=== PATIENT | female | born 1945 | race Caucasian/White ===

== ENCOUNTER 2019-04-30 13:20 | Emergency (ER) | payer MEDICARE ==
[2019-04-30] MEDS ORDERED: Sodium Chloride 0.9% 10 ML Syringe FLUSH PRN (13:24)
--- NOTE | 2019-04-30 14:40 | EDM.PDOC ---
ED HPI GENERAL MEDICAL PROBLEM - General Chief Complaint: General Stated Complaint: DISORIENTED Time Seen by Provider: 04/30/19 14:25 Source of Information: Reports: Patient, Family, Old Records History Limitations: Reports: No Limitations - History of Present Illness INITIAL COMMENTS - FREE TEXT/NARRATIVE: 74 yo healthy female is brought into the ER for about 30 minutes of confusion. Has no slurred speech or difficulty walking. Was speaking clearly but was disoriented. Is now fully back to her normal, but doesn't remember events that occurred during that interval of time. No GARCIA. No recent stress or sleep deprivation. No recent illnesses. Onset: Today Onset Date: 04/30/19 Duration: Minutes: (30), Resolved Prior to Arrival Location: Reports: Head Quality: Reports: Other (no pain) Severity: Moderate Improves with: Reports: Other (time) Worsens with: Reports: Other (unknown) Context: Reports: Other (see HPI) Associated Symptoms: Reports: No Other Symptoms Treatments [employer]: Reports: Other (see below) (none) - Related Data Allergies Allergy/AdvReac Type Severity Reaction Status Date / Time No Known Allergies Allergy Verified 04/30/19 14:11 Home Meds: Home Meds Hydrochlorothiazide/Lisinopril [Lisinopril/HCTZ 20-12.5 MG] 1 tab PO DAILY 04/30 [History] atorvaSTATin [Lipitor] 20 mg PO BEDTIME 04/30/19 [History] metFORMIN [Glucophage] 500 mg PO BIDMEALS 04/30/19 [History] Past Medical History Cardiovascular History: Reports: High Cholesterol, Hypertension Gastrointestinal History: Reports: None Musculoskeletal History: Reports: Arthritis Endocrine/Metabolic History: Reports: Diabetes, Type II Oncologic (Cancer) History: Reports: Other (See Below) Other Oncologic History: skin cancer removed off hand - Past Surgical History Head Surgeries/Procedures: Reports: None Cardiovascular Surgical History: Reports: None GI Surgical History: Reports: Appendectomy Endocrine Surgical History: Reports: None Musculoskeletal Surgical History: Reports: None Oncologic Surgical History: Reports: None Dermatological Surgical History: Reports: None Social & Family History - Family History Family Medical History: Noncontributory - Tobacco Use Smoking Status *Q: Never Smoker Second Hand Smoke Exposure: No - Caffeine Use Caffeine Use: Reports: Coffee, Soda, Tea - Recreational Drug Use Recreational Drug Use: No ED ROS GENERAL - Review of Systems Review Of Systems: See Below Constitutional: Reports: No Symptoms HEENT: Reports: No Symptoms Respiratory: Reports: No Symptoms Cardiovascular: Reports: No Symptoms GI/Abdominal: Reports: No Symptoms : Reports: No Symptoms Musculoskeletal: Reports: No Symptoms Skin: Reports: No Symptoms Neurological: Reports: Confusion (amnesia now to events during that 30 minutes of confusion. ). Denies: Dizziness, Headache Psychiatric: Reports: No Symptoms ED EXAM, GENERAL - Physical Exam Exam: See Below Exam Limited By: No Limitations General Appearance: Alert, WD/WN, No Apparent Distress Eye Exam: Bilateral Eye: Normal Inspection Ears: Normal External Exam, Normal Canal, Hearing Grossly Normal, Normal TMs Ear Exam: Bilateral Ear: Auricle Normal, Canal Normal, TM normal Nose: Normal Inspection, No Blood Throat/Mouth: Normal Inspection, Normal Lips, Normal Oropharynx, Normal Voice, No Airway Compromise Head: Atraumatic, Normocephalic Neck: Normal Inspection Respiratory/Chest: No Respiratory Distress, Lungs Clear, Normal Breath Sounds, No Accessory Muscle Use Cardiovascular: Regular Rate, Rhythm, No Edema GI/Abdominal: Normal Bowel Sounds, Soft, Non-Tender, No Distention Back Exam: Normal Inspection. No: CVA Tenderness (R), CVA Tenderness (L) Extremities: Normal Inspection, Normal Range of Motion, Non-Tender, No Pedal Edema Neurological: Alert, Oriented, CN II-XII Intact, Normal Cognition, No Motor/ Sensory Deficits Psychiatric: Normal Affect, Normal Mood Skin Exam: Warm, Dry, Intact, Normal Color, No Rash Course - Vital Signs Last Recorded V/S: Last Vital Signs Temp Pulse 62 04/30/19 14:09 Resp 16 04/30/19 14:09 BP 171/84 H 04/30/19 14:09 Pulse Ox 98 04/30/19 14:09 - Orders/Labs/Meds Orders: Active Orders 24 hr Category Date Time Status Cardiac Monitoring [RC] .As Directed Care 04/30/19 13:24 Inactive Oxygen Therapy Adult [Oxygen Therapy, ED] [RC] Care 04/30/19 13:24 Inactive ASDIRECTED Urinary Catheter Assessment [RC] ASDIRECTED Care 04/30/19 13:26 Inactive Labs: Laboratory Tests 04/30/19 04/30/19 04/30/19 Range/Units 14:43 14:43 15:22 WBC 6.8 (4.5-11.0) K/uL RBC 4.36 (3.30-5.50) M/uL Hgb 13.0 (12.0-15.0) g/dL Hct 40.8 (36.0-48.0) % MCV 94 (80-98) fL MCH 30 (27-31) pg MCHC 32 (32-36) % Plt Count 290 (150-400) K/uL Sodium 142 (140-148) mmol/L Potassium 3.8 (3.6-5.2) mmol/L Chloride 101 (100-108) mmol/L Carbon Dioxide 28 (21-32) mmol/L Anion Gap 12.8 (5.0-14.0) mmol/L BUN 22 H (7-18) mg/dL Creatinine 0.9 (0.6-1.0) mg/dL Est Cr Clr Drug Dosing 54.14 mL/min Estimated GFR (MDRD) > 60 (>60) Glucose 161 H (74-106) mg/dL Calcium 9.2 (8.5-10.1) mg/dL Troponin I < 0.017 (0.000-0.056) ng/mL Urine Color Yellow (YELLOW) Urine Appearance Clear (CLEAR) Urine pH 6.0 (5.0-8.0) Ur Specific [place] 1.010 (1.008-1.030) Urine Protein Negative (NEGATIVE) mg/dL Urine Glucose (UA) Normal (NEGATIVE) mg/dL Urine Ketones Negative (NEGATIVE) mg/dL Urine Occult Blood Negative (NEGATIVE) Urine Nitrite Negative (NEGATIVE) Urine Bilirubin Negative (NEGATIVE) Urine Urobilinogen 0.2 (0.2-1.0) EU/dL Ur Leukocyte Esterase Negative (NEGATIVE) Urine RBC 0-5 (0-5) Urine WBC 0-5 (0-5) Ur Epithelial Cells Rare Amorphous Sediment Not seen Urine Bacteria Not seen Urine Mucus Not seen Meds: Medications Discontinued Medications Generic Name Dose Route Start Last Admin Trade Name Freq PRN Reason Stop Dose Admin Aspirin 324 mg 04/30/19 15:24 04/30/19 15:29 Aspirin PO 04/30/19 15:25 324 mg ONETIME ONE Administration Sodium Chloride 10 ml 04/30/19 13:24 Saline Flush FLUSH ASDIRECTED PRN Keep Vein Open Departure - Departure Time of Disposition: 15:38 Disposition: Home, Self-Care 01 Condition: Fair Clinical Impression: Transient confusion, Amnesia, Elevated glucose level - Discharge Information *PRESCRIPTION DRUG MONITORING PROGRAM REVIEWED*: Not Applicable *COPY OF PRESCRIPTION DRUG MONITORING REPORT IN PATIENT REYNA: Not Applicable Instructions: Hyperglycemia, [id number] Referrals: Brent Butler MD [Primary Care Provider] - Forms: ED Department Discharge Additional Instructions: Increase your metformin to 1000 mg twice daily. Take a baby aspirin, chewed, with a meal each day. F/U with Dr. Butler. Return here as needed. Sepsis Event Note - Evaluation Sepsis Screening Result: No Definite Risk - Focused Exam Vital Signs: Vital Signs Pulse Resp BP Pulse Ox 04/30/19 14:09 62 16 171/84 H 98 Date Exam was Performed: 04/30/19 Time Exam was Performed: 15:38 - My Orders Last 24 Hours: My Active Orders 04/30/19 13:24 Cardiac Monitoring [RC] .As Directed Oxygen Therapy Adult [Oxygen Therapy, ED] [RC] ASDIRECTED 04/30/19 13:26 Urinary Catheter Assessment [RC] ASDIRECTED - Assessment/Plan Last 24 Hours: My Active Orders 04/30/19 13:24 Cardiac Monitoring [RC] .As Directed Oxygen Therapy Adult [Oxygen Therapy, ED] [RC] ASDIRECTED 04/30/19 13:26 Urinary Catheter Assessment [RC] ASDIRECTED
[2019-04-30] MEDS ORDERED: Aspirin 81 MG Tab.Chew PO ONE (15:24)
== END 2019-04-30 15:53 | disposition home or self-care (01) ==
LOC: JP.ED 13:20
DX: R41.0 Disorientation, unspecified (principal); R41.3 Other amnesia; E11.65 Type 2 diabetes mellitus with hyperglycemia; I10 Essential (primary) hypertension; E78.00 Pure hypercholesterolemia, unspecified; M19.90 Unspecified osteoarthritis, unspecified site; Z79.84 Long term (current) use of oral hypoglycemic drugs; Z79.899 Other long term (current) drug therapy
CPT/HCPCS: 36415; 80048; 81001; 84484; 85027; 99283; 99285; A9270

== ENCOUNTER 2020-08-28 07:46 | Day surgery (SDC) | payer MEDICARE ==
[~2020-08-28 07:46] MED LIST: Sodium Chloride 0.9% 1,000 ML IV SCH
[2020-08-28] MEDS ORDERED: Propofol 200 MG/20 ML SDV ONE (07:52)
[2020-08-28] MEDS ORDERED: fentaNYL 100 MCG/2 ML SDV ONE (07:52)
[2020-08-28] MEDS ORDERED: Sodium Chloride 0.9% 1,000 ML IV SCH (08:00)
--- NOTE | 2020-08-29 07:31 | OR ---
DATE OF PROCEDURE: 08/28/2020 SURGEON: Raul Nicole MD PROCEDURE: Colonoscopy. PREOPERATIVE DIAGNOSIS: Positive Cologuard. POSTOPERATIVE DIAGNOSIS: Positive Cologuard. RISKS: Risks, benefits, alternatives, and limitations including, but not limited to infection, bleeding, false positives and false negatives were explained to the patient who wished to proceed. FINDINGS: Diverticulosis, moderate, limited to sigmoid colon without evidence of diverticulitis or bleeding. PROCEDURE IN DETAIL: The patient was placed in left lateral decubitus position. Digital rectal exam was performed without abnormality. Scope was introduced and advanced atraumatically to the ileocecal valve. A photo was taken. The scope was brought back to the ascending, transverse, descending colon, and retroflexed. No evidence of old or new blood. No masses. No polyps. The prep was acceptable. Approximately 90% of luminal surface could be seen. Some solid and liquid stool remaining. No abnormalities on retroflexion. Of note, at the end of the procedure, the scope was then brought back up again to the splenic flexure. No abnormalities were noted. Greater than 8 minutes was spent removing the scope. The patient tolerated the procedure well. Raul Nicole MD /[id number]
== END 2020-08-28 11:30 | disposition home or self-care (01) ==
LOC: JP.SDS 07:46
PROVIDERS: ATTEND Surgery
DX: K57.30 Diverticulosis of large intestine without perforation or abscess without bleeding (principal); I10 Essential (primary) hypertension; E78.00 Pure hypercholesterolemia, unspecified
CPT/HCPCS: J2704; J3010; J7030